=== PATIENT | male | born 1985 | race Two or more races ===

== ENCOUNTER 2019-07-18 23:08 | Emergency (ER) | payer SELFPAY ==
[2019-07-18 23:15] VITALS: BP 123/85; PULSE 79; RESP 18; TEMP 36.7; O2SAT 97; BMI 213.1
[2019-07-18 23:56] LABS: Microscopic, Urine URINE MICROSCOPIC (MICROSCOPIC)
[2019-07-18 23:57] LABS: Appearance,Urine CLEAR (Clear); Bilirubin,Urine Negative (Negative); Blood, Urine Negative (Negative); Color,Urine YELLOW (Yellow); Glucose,Urine (UA) Negative (Negative); Ketones,Urine Negative (Negative); Leukocyte Esterase,Urine Negative (Negative); Nitrate,Urine Negative (Negative); Protein,Urine Negative (Negative); Urobilinogen,Urine 0.2 EU/dl (0.2)
[2019-07-18 23:58] LABS: Basophils % 0.3 % (0.1-2.0); Eosinophils # 0.4 K/mm3 (0.0-0.4); Eosinophils % 3.7 % (0.1-12.0); Hematocrit 44.9 % (42.0-52.0); Lymphocytes # 1.7 K/mm3 (0.7-4.5); Lymphocytes % 15.3 % (10-50); Mean Corpuscular HGB Conc 33.5 g/dL (31.8-35.4); Mean Corpuscular Hemoglobin 29.8 pg (27.0-31.2); Mean Corpuscular Volume 89.1 fl (80-94); Mean Platelet Volume 7.1 fl (7.4-10.4); Monocytes # 0.6 K/mm3 (0.1-1.0); Monocytes % 5.1 % (1.7-9.3); Neutrophils # 8.4 K/mm3 (1.8-7.8); Neutrophils % 75.6 % (37.0-80.0); Platelet Count 365 K/mm3 (142-424); Red Blood Count 5.04 M/mm3 (4.60-6.20); Red Cell Distribution Width 12.2 % (11.5-17.5); White Blood Count 11.2 K/mm3 (4.8-10.8)
--- NOTE | 2019-07-19 00:01 | CT_ITS ---
PROCEDURE: CT SINUS WO CON CLINICAL HISTORY: pain COMPARISON: No exams were available for comparison TECHNIQUE: Axial images obtained with sagittal and coronal reformats. All CT scans at the facility use one or more dose reduction, viz: automated exposure control, ma/kV adjustment per patient size (including targeted exams where dose is matched to indication, i.e. head), or iterative reconstruction technique. FINDINGS: There is severe mucosal thickening involving right anterior posterior ethmoid air cells and right maxillary sinus. There is mild to moderate mucosal thickening involving left-sided anterior and posterior ethmoid air cells and moderate thickening involving left maxillary sinus and floor of the frontal sinus. Frontal sinus involvement is greater on the right side. There is no knee mild mucosal thickening involving the sphenoid sinus. Osseous structures appear to be intact. Orbital structures are unremarkable. There is soft tissue density occupying the ostiomeatal complexes bilaterally greater on the right side. There is mild curvature of the osseous septum, convex towards right. There is associated small 2 millimeter right-sided septal spur. Nasal turbinates are normal. IMPRESSION: Chronic pansinusitis as described worse on the right side especially anterior and posterior ethmoid sinuses and the right maxillary sinus. Septal curvature with a small septal spur. Dictated by: Fuentes Coombs 07/19/2019 12:36 Electronically signed by Fuentes Coombs in [facility] 07/19/2019 12:36
[2019-07-19 00:07] LABS: Amorphous Sediment,Urine Trace /lpf
[2019-07-19 00:10] LABS: Alanine Aminotransferase 87 U/L (12-78); Albumin Level 3.6 gm/dL (3.4-5.0); Albumin/Globulin Ratio 0.9 (1.1-1.8); Alkaline Phosphatase 149 U/L (46-116); Anion Gap 12.8 mEq/L (5-15); Aspartate Amino Transferase 46 U/L (15-37); Bilirubin,Total 0.3 mg/dL (0.2-1.0); Blood Urea Nitrogen 10 mg/dL (7-18); Calcium 8.8 mg/dL (8.5-10.1); Carbon Dioxide 30 mmol/L (21.0-32.0); Chloride 101 mmol/L (98-107); Creatinine Clearance Estimated 97 mL/min (50-200); Creatinine,Serum 1.04 mg/dL (0.70-1.30); Estimated Glomerular Filt Rate 82 ml/min (>60); GFR (African American) 99 ML/MIN (>60); Globulin 4.1 gm/dl (1.3-3.2); Glucose 136 mg/dL (74-106); Potassium 3.8 mmoL/L (3.5-5.1); Sodium 140 mmol/L (136-145); Total Protein,Serum 7.7 gm/dL (6.4-8.2)
--- NOTE | 2019-07-19 01:27 | [facility].EDGENADL ---
ED Disposition Clinical Impression: Acute pansinusitis Qualifiers: Recurrence: not specified as recurrent Qualified Code(s): J01.40 - Acute pansinusitis, unspecified Disposition: Home, Self-Care Condition on Discharge: Good Instructions: DI for Sinusitis Additional Instructions: see pcp and ent for follow up Prescriptions: Cefdinir [Omnicef 300mg Capsule] 300 mg PO BID 7 Days #14 cap Transmission Status: Pending to [facility] [place] predniSONE [Prednisone 20mg Tab] 20 mg PO BID #10 tab Transmission Status: Pending to [facility] [place] Referrals: Provider,MD Neymar [Primary Care Provider] - Сергей Dunlap MD [Staff Physician] - - Critical Care Critical Care Time: No Attestation: On 07/18/19, the high probability of a clinically significant, sudden or life threatening deterioration of the following system(s) required my full and direct attention, intervention and personal management. The time I documented below is in addition to time spent performing reported procedures but includes the following listed in this critical care notation. Medical Decision Making - Medical Records Medical records reviewed: Yes: I reviewed the patient's medical records. - Jeff Inquiry Pt receiving controlled substance: No Vital Signs: 07/18/19 23:15 Temperature 98.0 F Temperature Source Oral Pulse Rate [Right Brachial] 79 Respiratory Rate 18 Blood Pressure [Right Arm] 123/85 Blood Pressure Mean [Right Arm] 97 Blood Pressure Source [Right Arm] Automatic Cuff Blood Pressure Position [Right Arm] Sitting 02 Sat by Pulse Oximetry 97 Oxygen Delivery Method Room Air - Lab Data Lab results reviewed: Yes: I reviewed the patient's lab results. Lab Results 07/18/19 23:10: Urine Color Yellow, Urine Appearance Clear, Urine pH 7.0, Ur Specific Reform 1.020, Urine Protein Negative, Urine Glucose (UA) Negative, Urine Ketones Negative, Urine Blood Negative, Urine Nitrate Negative, Urine Bilirubin Negative, Urine Urobilinogen 0.2, Ur Leukocyte Esterase Negative, Amorphous Sediment Trace 07/18/19 23:50: WBC 11.2 H, RBC 5.04, Hgb 15.0, Hct 44.9, MCV 89.1, MCH 29.8, MCHC 33.5, RDW 12.2, Plt Count 365, MPV 7.1 L, Neut % (Auto) 75.6, Lymph % (Auto) 15.3, Ralls % (Auto) 5.1, Eos % (Auto) 3.7, Baso % (Auto) 0.3, Neut # (Auto) 8.4 H, Lymph # (Auto) 1.7, Ralls # (Auto) 0.6, Eos # (Auto) 0.4, Baso # (Auto) 0.0 07/18/19 23:50: Sodium 140, Potassium 3.8, Chloride 101, Carbon Dioxide 30, Anion Gap 12.8, BUN 10, Creatinine 1.04, Estimated Creat Clear 97, Estimated GFR 82, Est GFR ( Amer) 99, Glucose 136 H, Calcium 8.8, Total Bilirubin 0.3, AST 46 H, ALT 87 H, Alkaline Phosphatase 149 H, Total Protein 7.7, Albumin 3.6, Globulin 4.1 H, Albumin/Globulin Ratio 0.9 L Result diagrams: 07/18/19 23:50 07/18/19 23:50 Orders (Tests/Meds): ED MEDICATIONS Generic Name Dose Route Start Last Admin Trade Name Freq PRN Reason Stop Dose Admin Sodium Chloride 1,000 mls @ 999 mls/hr 07/18/19 23:30 07/18/19 23:41 Sod Chlor 0.9% 1000ml Bag IV 07/19/19 00:30 999 mls/hr .[id number] JUSTIN Administration Discontinued Medications Generic Name Dose Route Start Last Admin Trade Name Freq PRN Reason Stop Dose Admin Ketorolac Tromethamine 30 mg 07/18/19 23:29 07/18/19 23:41 Toradol 30mg/Ml Vial IV 07/18/19 23:30 30 mg ONCE ONE Administration ORDERS Category Date Time Status CT sinus wo con Stat Cat Scan 07/19/19 00:01 Taken - CT Data CT Scan: Sinus Time Received: 01:[address] Reviewed: Yes: I have viewed the radiologist's interpretation Preliminary Findings: Abnormal (sinusitis) General Adult HPI - General Chief complaint: PAIN Stated complaint: Pain in rt Side of face Time Seen by Provider: 07/19/19 00:00 Mode of Arrival: Ambulatory Source of Information: Patient, Significant Other, Medical Record Limitations: No Limitations Description of Symptoms (Recalled from ER Triage
[2019-07-19 01:52] VITALS: BP 119/76; PULSE 74; RESP 14; TEMP 36.8; O2SAT 99
== END 2019-07-19 01:52 | disposition home or self-care (01) ==
PROVIDERS: Emergency Provider Emergency Medicine
DX: J01.40 Acute pansinusitis, unspecified (principal)
CPT/HCPCS: 70486; 80053; 81001; 85025; 96365; 96367; 96375; 99283